=== PATIENT | female | born 1990 ===

== ENCOUNTER 2023-04-21 10:07 | Inpatient (IN) ==
[2023-04-21] MEDS ORDERED: PENICILLIN G POTASSIUM 6 MU in DEXTROSE 5% 250 ML IV STA (12:21)
[2023-04-21] MEDS ORDERED: LIDOCAINE 1% LOCAL 20 ML VIAL INFIL PRN (12:21)
[2023-04-21] MEDS ORDERED: OXYTOCIN 30 UNITS/500 ML BAG IV PRN ×2 (12:21→14:19)
--- NOTE | 2023-04-21 12:48 | History & Physical Report ---
Date of Service April 21, 2023 Assessment & Plan (1) IUGR (intrauterine growth restriction) affecting care of mother: Plan: Plan for induction of labor. Will start pitocin. Patient has not eaten all day, asking for food - will allow to eat, then will start pitocin. She is agreeable with plan. Check blood sugar hourly when in active labor. History of Present Illness Chief Complaint: IUGR Primary Care Provider: NO PCP 32yo @ 37 12/03, sent from office to L&D for induction of labor. She was seen for initial OB visit today, transfer from [facility]. Prior practice had been monitoring AC, last US showed AC 6%ile. She had an ultrasound at our practice today, showing <3%ile AC. Therefore, given gestational age, she has been recommended for IOL. H/o x 4. Gestational diabetes in this , no insulin use - states blood sugars have been between 100-115. Rh negative, rec'd Rhogam at prior practice. Strip Deburrer Ipad used for Icelandic language. Allergies Allergy/AdvReac Type Severity Reaction Status Date / Time No Known Allergies Allergy Verified 04/21/23 08:18 Home Medications Medication Instructions Recorded Confirmed Type prenat.vits,david,rcj-stvd-ldfkl 1 tab PO DAILY 04/20/23 04/21/23 History Patient History Medical History (Updated 04/21/23 @ 10:39 by Sharlene Echols RN) Gestational diabetes Family History (Updated 04/20/23 @ 13:48 by Sona Vasquez) Father Diabetes Social History (Updated 04/20/23 @ 13:49 by Sona Vasquez) Smoking Status: Never smoker Second Hand Exposure: No; Do You Dip or Chew Tobacco: No; Hx Alcohol Use: No Hx Substance Use: No Preferred Language: Other Communication Ability: Effective Strip Deburrer Required: Yes Beliefs That Will Affect Care: None marital status: marital status details: Darshan [phone] Current Living Situation: Family Current Living Situation Comment: Lives with and 4 children current occupational status: unemployed Other Information That Helps Us Care for You: No Assistive Devices: None Review of Systems All systems reviewed & are unremarkable except as noted in HPI & below Physical Exam Physical Exam: FHT Cat 1 [place] rare SVE 2-3/70/-2 Constitutional: WD/WN, vitals as above Respiratory: normal respiratory effort, lungs clear to auscultation no respiratory distress Cardiovascular: Rate/Rhythm: regular rate and regular rhythm Gastrointestinal (Abdomen): Inspection/Auscultation: abdomen normal to inspection Percussion/Palpation: abdomen soft; abdomen nontender Gravid. No s/s chorio or abruption. Skin: no rashes, warm and dry Psychiatric: A+Ox3, euthymic affect Results & Data Vital Signs (Past 12 Hours) Vital Signs Pulse Resp BP 04/21/23 11:35 74 115/81 04/21/23 10:59 76 117/80 04/21/23 10:47 59 L 90/51 L 04/21/23 11:02 76 16 117/80 Coding Level of Care Code None Diagnoses IUGR (intrauterine growth restriction) affecting care of mother O36.5990
[2023-04-21 13:00] LABS: Hematocrit (blood only) 36.2 % (37.0-47.0); Hemoglobin 12.2 g/dl (12.0-16.0); Mean Corpuscular Hemoglobin 27.6 pg (25.0-34.0); Mean Corpuscular Hgb Conc 33.7 g/dL (32.0-36.0); Mean Corpuscular Volume 81.9 fL (80.0-100.0); Mean Platelet Volume 12.9 fL (9.4-12.4); Platelet Count 198 K/uL (130-400); RDW Coefficient of Variation 14.1 % (11.5-14.5); RDW Standard Deviation 41.4 fL (36.4-46.3); Red Blood Count 4.42 M/uL (4.20-5.40); White Blood Count 7.78 K/ul (4.8-10.8)
[2023-04-21] MEDS: LACTATED RINGER'S 1,000 ML IV PRN ×2 (15:06→23:45)
[2023-04-21] MEDS: PENICILLIN G POTASSIUM 3 MU in DEXTROSE 5% 100 ML IV PRN ×2 (19:12→23:44)
--- NOTE | 2023-04-21 19:12 | Labor Progress Brief Note ---
Date of Service April 21, 2023 Visit with kennel staff member. Patient with pain and thinks she feels pressure. pit at 7. not interested in epidural yet Assessment & Plan (1) Encounter for induction of labor: (2) IUGR (intrauterine growth restriction) affecting care of mother: Plan Patient aware not much progress. Need to use pitocin to achieve better labor pattern. Aware of option for epidural pain managment and declines. Aware that I am taking over care as I am provider breakdown person. FHTs categ 1. Answered couple's questions via kennel staff member. Admission and Anticipated Discharge Date Admission Date: April 21, 2023 Physical Exam Constitutional: WD/WN, vitals as above Genitourinary: Manual OB Exam: + cervical dilation (no change. ) OB Exam Monitor Tracing: + external FHT monitor used, + external uterine monitor used (q3-4 pit at 7), + category I and + normal FHT variability Results & Data Vital Signs (Past 12 Hours) Vital Signs Temp Pulse Resp BP 04/21/23 12:55 98.2 F 04/21/23 18:15 67 18 107/72 04/21/23 18:00 18 04/21/23 18:00 18 04/21/23 17:30 18 04/21/23 17:30 18 04/21/23 16:59 18 04/21/23 16:59 18 04/21/23 17:07 99.0 F 65 18 118/78 04/21/23 16:30 18 04/21/23 16:30 18 04/21/23 16:00 76 18 112/78 04/21/23 15:45 18 04/21/23 15:45 18 04/21/23 15:12 76 120/70 04/21/23 11:35 74 115/81 04/21/23 10:59 76 117/80 04/21/23 10:47 59 L 90/51 L 04/21/23 11:02 98.2 F 76 16 117/80 Coding Level of Care Code None Diagnoses Encounter for induction of labor Z34.90 IUGR (intrauterine growth restriction) affecting care of mother O36.5990
--- NOTE | 2023-04-21 21:28 | Labor Progress Brief Note ---
Date of Service April 21, 2023 Subjective went to see pt with regular ctx and considering rom. pit at 15 notes some pain with ctx. has not requested pain mgmt. Assessment & Plan (1) Encounter for induction of labor: (2) IUGR (intrauterine growth restriction) affecting care of mother: Plan fhts categ 1. could not arom. cont pit. of note, during exam pt screamed out "c/section" and i then had forest pathology teacher set up. explained to pt that she can demand c/s and I would have to perform but no medical indication. she explains through forest pathology teacher that her other labors were spontaneous and she is not sure about induction and if its working. i explained via forest pathology teacher that currently no indication for c/s and that if i felt that indication arose, i would be sure to communicate that with her. also basic risks and complications of c/s reviewed with pt. i explained via forest pathology teacher that her screaming out "c/section" is troubling because i want to be sure we are preceding how she desires since she can demand c/s even if no medical need at this point. she explains to forest pathology teacher that this is not what she wants, she wants to continue with the induction. explained that patience is needed as she is not truly in labor yet and as I am understanding that she has not had an induction before, that this is a process that takes time and we only started this afternoon at 3pm. reviewed with her that exams are painful and made sure she did not feel she needed pain mgmt as that could help with the tolerance of exams. she declined pain mgmt and stated the pain is when i try to examine her and she is having some pain with ctx but not severe to request pain mgmt. all conversation witnessed by nurse and pt partner. he asked if i spoke Omkar because he is Omkar speaking but I do not. We will continue with current care plan and pt agrees. She denied further questions. Before hanging up with forest pathology teacher, I explained need for nurses to position pt in different ways to help promote the labor/progress and she seemed amenable. Will increase the pit max. Admission and Anticipated Discharge Date Admission Date: April 21, 2023 Physical Exam Constitutional: WD/WN, vitals as above Genitourinary: Manual OB Exam: + cervical dilation 3 cm, + cervical effacement 70%, + station -2 and + amniotic fluid (attempted arom x 2 unsuccessful ) OB Exam Monitor Tracing: + external FHT monitor used, + external uterine monitor used (q2 ), + category I and + normal FHT variability Results & Data Vital Signs (Past 12 Hours) Vital Signs Temp Pulse Resp BP 04/21/23 12:55 98.2 F 04/21/23 20:32 71 108/69 04/21/23 19:20 98.6 F 73 18 119/82 04/21/23 18:15 67 18 107/72 04/21/23 18:00 18 04/21/23 18:00 18 04/21/23 17:30 18 04/21/23 17:30 18 04/21/23 16:59 18 04/21/23 16:59 18 04/21/23 17:07 99.0 F 65 18 118/78 04/21/23 16:30 18 04/21/23 16:30 18 04/21/23 16:00 76 18 112/78 04/21/23 15:45 18 04/21/23 15:45 18 04/21/23 15:12 76 120/70 04/21/23 11:35 74 115/81 04/21/23 10:59 76 117/80 04/21/23 10:47 59 L 90/51 L 04/21/23 11:02 98.2 F 76 16 117/80 Coding Level of Care Code None Diagnoses Encounter for induction of labor Z34.90 IUGR (intrauterine growth restriction) affecting care of mother O36.5990
[2023-04-22] MEDS ORDERED: ePHEDrine sulfate 50 MG/ML AMP ONE (01:47)
[2023-04-22] MEDS ORDERED: BUPIVACAINE 0.25% PF 30 ML VIAL ONE (01:48)
[2023-04-22] MEDS ORDERED: SODIUM CHLORIDE 0.9% PF INJ 10 ML VIAL ONE (01:48)
[2023-04-22] MEDS ORDERED: LIDOCAINE 2%/EPINEPHRINE 1:200,000 20 ML PF ONE (01:48)
[2023-04-22] MEDS ORDERED: fentaNYL citrate PF 100 MCG/2 ML VIAL ONE (01:48)
[2023-04-22] MEDS ORDERED: fentaNYL 2MCG/ML ROPIVACAINE 1.25MG/ML 100 ML BAG EPI ONE (01:49)
[2023-04-22] MEDS: LACTATED RINGER'S 1,000 ML IV PRN (01:57)
--- NOTE | 2023-04-22 02:42 | Anesthesiology Consultation ---
Date of Service April 22, 2023 Assessment & Plan Chart Review Chart Review: Acceptable Risk for Labor Epidural Consults Requested none History Height/Weight Height: 5 ft 2 in Weight: 79.832 kg Allergies Allergy/AdvReac Type Severity Reaction Status Date / Time No Known Allergies Allergy Verified 04/21/23 08:18 Medications Home Medications Medication Instructions Recorded Confirmed Last Taken prenat.vits,david,zvw-xcct-keevb 1 tab PO DAILY 04/20/23 04/21/23 04/20/23 Active Medications Generic Name Dose Route Start Last Admin Trade Name Freq PRN Reason Stop Dose Admin Lactated Ringer's 1,000 mls @ 125 mls/hr 04/21/23 12:21 04/22/23 01:57 Lr IV 04/23/23 12:20 125 mls/hr .Q8H PRN Administration L&D Protocol Protocol Penicillin G Potassium 3 mu/ 106 mls @ 100 mls/hr 04/21/23 15:21 04/22/23 00:48 Dextrose IV 05/01/23 15:20 Infused Q4H PRN Infusion GBS(+) Until Delivery Oxytocin 30 units in 500 mls @ 21 mls/hr 04/21/23 14:19 04/21/23 23:25 Pitocin IV 04/23/23 14:18 1.26 units/hr .[id number] PRN 21 mls/hr Labor Induction/Augmentation Titration Protocol 1.26 UNITS/HR Past Medical History Medical History (Updated 04/21/23 @ 19:11 by Linette Walsh MD, FACOG) Gestational diabetes Past Family History Family History (Updated 04/20/23 @ 13:48 by Sona Vasquez) Father Diabetes Social History Smoking Status: Never smoker Do You Dip or Chew Tobacco: No Hx Alcohol Use: No Hx Substance Use: No Physical Exam Vital Signs Last Vital Signs Temp 36.8 C 04/22/23 02:40 Pulse 90 04/22/23 02:41 Resp 18 04/22/23 02:40 BP 107/60 04/22/23 02:41 Pulse Ox 98 04/22/23 02:40 Testing Laboratory Results 04/21/23 12:35 Blood Type A Negative 04/21/23 12:35 Antibody Screen POSITIVE A 04/21/23 12:35 04/21/23 19:06 POC Glucose 80
[2023-04-22] MEDS ORDERED: LIDOCAINE 2% MPF LOCAL 5 ML VIAL EPI PRN (02:44)
[2023-04-22] MEDS ORDERED: fentaNYL citrate PF 100 MCG/2 ML VIAL EPI PRN (02:44)
[2023-04-22] MEDS ORDERED: ONDANSETRON INJ 2 MG/ML 2 ML VIAL IV PRN (02:44)
[2023-04-22] MEDS ORDERED: SODIUM CHLORIDE 0.9% PF INJ 10 ML VIAL EPI STA (02:44)
[2023-04-22] MEDS ORDERED: SODIUM CHLORIDE 0.9% PF INJ 10 ML VIAL EPI PRN (02:44)
[2023-04-22] MEDS ORDERED: fentaNYL citrate PF 100 MCG/2 ML VIAL EPI STA (02:44)
[2023-04-22] MEDS ORDERED: ePHEDrine sulfate 50 MG/ML AMP IV PRN (02:44)
[2023-04-22] MEDS ORDERED: NALBUPHINE HCL INJ 10 MG/ML AMP IV PRN (02:44)
[2023-04-22] MEDS ORDERED: fentaNYL 2MCG/ML ROPIVACAINE 1.25MG/ML 100 ML BAG EPI PRN (02:44)
[2023-04-22] MEDS ORDERED: LIDOCAINE 2%/EPINEPHRINE 1:200,000 20 ML PF EPI STA (02:44)
[2023-04-22] MEDS ORDERED: BUPIVACAINE 0.25% PF 30 ML VIAL EPI STA (02:44)
[2023-04-22] MEDS ORDERED: NALOXONE HCL 1 MG in SODIUM CHLORIDE 0.9% 1000ML 1,000 ML IV PRN (02:44)
[2023-04-22] MEDS ORDERED: NALOXONE HCL 0.4 MG/1 ML VIAL/CARP IV PRN (02:44)
[2023-04-22] MEDS ORDERED: ROPIVACAINE 0.5% PF 5 MG/ML 20 ML VIAL EPI PRN (02:44)
[2023-04-22] MEDS ORDERED: BUPIVACAINE 0.25% PF 30 ML VIAL EPI PRN (02:44)
[2023-04-22] MEDS ORDERED: diphenhydrAMINE 50 MG/ML VIAL IV PRN (02:44)
[2023-04-22] MEDS: PENICILLIN G POTASSIUM 3 MU in DEXTROSE 5% 100 ML IV PRN ×2 (03:35→07:32)
--- NOTE | 2023-04-22 03:39 | Labor Progress Brief Note ---
Date of Service April 22, 2023 Subjective no complaints. comfortable with epidural. pit at 21 Assessment & Plan (1) Encounter for induction of labor: (2) IUGR (intrauterine growth restriction) affecting care of mother: Plan some cx change. will see how arom helps. fhts categ 1. construction operations manager used for entire visit. vicki intepreter. Admission and Anticipated Discharge Date Admission Date: April 21, 2023 Physical Exam Constitutional: WD/WN, vitals as above Genitourinary: Manual OB Exam: + cervical dilation (4), + cervical effacement (70%), + station (-2 ant) and + amniotic fluid (AROM, bloody show) clear OB E xam Monitor Tracing: + external FHT monitor used, + external uterine monitor used (q2-3 ), + category I and + normal FHT variability Results & Data Vital Signs (Past 12 Hours) Vital Signs Temp Pulse Resp BP Pulse Ox 04/22/23 03:35 73 99 04/22/23 03:33 68 106/63 04/22/23 03:30 72 100 04/22/23 03:25 75 100 04/22/23 03:22 67 107/65 04/22/23 03:20 64 98 04/22/23 03:18 71 102/64 04/22/23 03:15 77 98 04/22/23 03:11 71 110/69 04/22/23 03:10 68 98 04/22/23 03:06 75 113/71 04/22/23 03:05 61 98 04/22/23 03:01 61 108/66 04/22/23 03:00 72 99 04/22/23 02:56 73 110/71 04/22/23 02:55 71 99 04/22/23 02:53 75 108/65 04/22/23 02:50 99 04/22/23 02:50 104 H 04/22/23 02:50 86 109/70 04/22/23 02:47 76 108/64 04/22/23 02:45 84 98 04/22/23 02:44 74 107/63 04/22/23 02:41 90 107/60 04/22/23 02:40 18 04/22/23 02:40 98.2 F 92 H 18 98 04/22/23 02:38 85 106/68 04/22/23 02:35 97 04/22/23 02:35 71 04/22/23 02:35 65 112/72 04/22/23 02:31 73 114/75 04/22/23 02:30 72 99 04/22/23 02:25 79 99 04/22/23 02:20 73 98 04/22/23 02:15 69 98 04/22/23 02:10 73 99 04/22/23 02:05 70 100 04/22/23 02:00 69 100 04/22/23 01:33 74 114/73 04/21/23 23:51 18 04/21/23 23:51 99.0 F 18 04/22/23 00:33 69 112/77 04/21/23 23:33 62 105/58 L 04/21/23 22:34 71 126/79 04/21/23 21:33 66 124/77 04/21/23 20:32 71 108/69 04/21/23 19:20 98.6 F 73 18 119/82 04/21/23 18:15 67 18 107/72 04/21/23 18:00 18 04/21/23 18:00 18 04/21/23 17:30 18 04/21/23 17:30 18 04/21/23 16:59 18 04/21/23 16:59 18 04/21/23 17:07 99.0 F 65 18 118/78 04/21/23 16:30 18 04/21/23 16:30 18 04/21/23 16:00 76 18 112/78 04/21/23 15:45 18 04/21/23 15:45 18 Coding Level of Care Code None Diagnoses Encounter for induction of labor Z34.90 IUGR (intrauterine growth restriction) affecting care of mother O36.5990
--- NOTE | 2023-04-22 09:14 | Labor Progress Brief Note ---
Date of Service April 22, 2023 Subjective Comfortable with epidural. FHT Cat 1 [place] Q2-3 SVE 5/70/-2, anterior. Palpable membranes - ?forebag, AROM for copious clear fluid Will continue labor Assessment & Plan Admission and Anticipated Discharge Date Admission Date: April 21, 2023 Results & Data Vital Signs (Past 12 Hours) Vital Signs Temp Pulse Resp BP Pulse Ox 04/22/23 07:15 37.3 C 20 04/22/23 09:10 78 99 04/22/23 09:08 77 120/72 04/22/23 09:05 80 99 04/22/23 09:00 83 100 04/22/23 08:55 79 100 04/22/23 08:53 82 122/74 04/22/23 08:50 84 99 04/22/23 08:45 79 99 04/22/23 08:40 78 99 04/22/23 08:39 82 123/74 04/22/23 08:35 90 100 04/22/23 08:30 70 20 99 04/22/23 08:25 70 97 04/22/23 08:23 71 116/59 L 04/22/23 08:20 70 98 04/22/23 08:15 69 97 04/22/23 08:10 67 98 04/22/23 08:08 64 114/57 L 04/22/23 08:05 67 98 04/22/23 08:00 64 20 97 04/22/23 07:55 65 98 04/22/23 07:53 69 114/61 04/22/23 07:50 68 98 04/22/23 07:45 69 98 04/22/23 07:40 69 98 04/22/23 07:38 67 111/58 L 04/22/23 07:35 71 99 04/22/23 07:30 37.3 C 72 20 98 04/22/23 07:25 68 97 04/22/23 07:24 68 111/58 L 04/22/23 07:20 71 98 04/22/23 07:15 77 98 04/22/23 07:10 80 97 04/22/23 07:07 74 106/65 04/22/23 07:05 73 99 04/22/23 07:02 77 109/58 L 04/22/23 07:00 88 98 04/22/23 06:55 78 98 04/22/23 06:50 77 97 04/22/23 06:51 67 107/57 L 04/22/23 06:48 67 104/58 L 04/22/23 06:45 68 97 04/22/23 06:42 65 104/56 L 04/22/23 06:40 67 97 04/22/23 06:37 70 106/59 L 04/22/23 06:35 68 98 04/22/23 06:31 72 106/62 04/22/23 06:30 65 98 04/22/23 06:26 67 101/59 L 04/22/23 06:25 65 97 04/22/23 06:23 65 104/56 L 04/22/23 06:20 69 97 04/22/23 06:15 68 98 04/22/23 06:16 64 108/57 L 04/22/23 06:12 65 105/55 L 04/22/23 06:10 68 98 04/22/23 06:06 64 105/57 L 04/22/23 06:05 70 98 04/22/23 06:02 71 110/62 04/22/23 06:00 37.1 C 74 16 99 04/22/23 05:57 78 115/69 04/22/23 05:55 76 99 04/22/23 05:52 77 108/68 04/22/23 05:50 77 98 04/22/23 05:48 71 107/62 04/22/23 05:45 74 100 04/22/23 05:42 71 101/61 04/22/23 05:40 68 99 04/22/23 05:36 72 107/63 04/22/23 05:35 73 98 04/22/23 05:32 76 105/65 04/22/23 05:30 73 98 04/22/23 05:26 75 109/67 04/22/23 05:25 75 98 04/22/23 05:21 72 104/57 L 04/22/23 05:20 72 97 04/22/23 05:17 70 109/60 04/22/23 05:15 70 98 04/22/23 05:10 66 97 04/22/23 05:11 71 99/62 L 04/22/23 05:05 71 97 04/22/23 05:06 70 105/62 04/22/23 05:00 77 98 04/22/23 05:01 84 102/65 04/22/23 04:58 74 100/67 04/22/23 04:55 79 98 04/22/23 04:52 68 101/64 04/22/23 04:50 76 99 04/22/23 04:47 69 106/70 04/22/23 04:45 74 99 04/22/23 04:43 18 04/22/23 04:43 36.7 C 18 04/22/23 04:42 78 114/68 04/22/23 04:40 77 100 04/22/23 04:35 72 97 04/22/23 04:36 75 96/62 L 04/22/23 04:30 76 98 04/22/23 04:31 86 100/65 04/22/23 04:25 72 99 04/22/23 04:26 83 99/63 L 04/22/23 04:22 74 108/64 04/22/23 04:20 72 98 04/22/23 04:17 84 104/71 04/22/23 04:15 75 100 04/22/23 04:12 72 109/70 04/22/23 04:10 72 98 04/22/23 04:07 71 108/69 04/22/23 04:05 75 99 04/22/23 04:02 72 109/70 04/22/23 04:00 72 99 04/22/23 03:57 71 107/69 04/22/23 03:55 68 100 04/22/23 03:53 78 96/63 L 04/22/23 03:50 66 100 04/22/23 03:45 70 100 04/22/23 03:31 18 04/22/23 03:31 36.6 C 18 04/22/23 03:42 71 103/61 04/22/23 03:40 76 100 04/22/23 03:37 67 114/80 04/22/23 03:35 73 99 04/22/23 03:33 68 106/63 04/22/23 03:30 72 100 04/22/23 03:25 75 100 04/22/23 03:22 67 107/65 04/22/23 03:20 64 98 04/22/23 03:18 71 102/64 04/22/23 03:15 77 98 04/22/23 03:11 71 110/69 04/22/23 03:10 68 98 04/22/23 03:06 75 113/71 04/22/23 03:05 61 98 04/22/23 03:01 61 108/66 04/22/23 03:00 72 99 04/22/23 02:56 73 110/71 04/22/23 02:55 71 99 04/22/23 02:53 75 108/65 04/22/23 02:50 99 04/22/23 02:50 104 H 04/22/23 02:50 86 109/70 04/22/23 02:47 76 108/64 04/22/23 02:45 84 98 04/22/23 02:44 74 107/63 04/22/23 02:41 90 107/60 04/22/23 02:40 18 04/22/23 02:40 36.8 C 92 H 18 98 04/22/23 02:38 85 106/68 04/22/23 02:35 97 04/22/23 02:35 71 04/22/23 02:35 65 112/72 04/22/23 02:31 73 114/75 04/22/23 02:30 72 99 04/22/23 02:25 79 99 04/22/23 02:20 73 98 04/22/23 02:15 69 98 04/22/23 02:10 73 99 04/22/23 02:05 70 100 04/22/23 02:00 69 100 04/22/23 01:33 74 114/73 04/21/23 23:51 18 04/21/23 23:51 37.2 C 18 04/22/23 00:33 69 112/77 04/21/23 23:33 62 105/58 L 04/21/23 22:34 71 126/79 04/21/23 21:33 66 124/77 Coding Level of Care Code None Diagnoses
--- NOTE | 2023-04-22 10:23 | Delivery Summary ---
Vaginal Delivery Summary Date of Service April 22, 2023 Vaginal Delivery Summary [facility] Vaginal Delivery Summary: Pre-delivery diagnoses: 32yo @ 38 2/, late transfer of care, GBS unknown, IUGR with AC <3%ile, GDM, Rh negative Post-delivery diagnoses: same Procedure: spontaneous vaginal delivery Surgeon: Kimber Bolaños DO Complications: none Findings: Viable male . Apgars: 8/9. Weight pending, please see nursery records. Estimated blood loss: 300ml Description of delivery: The patient progressed to complete with epidural anesthesia. She then began to push. She spontaneously vaginally delivered a viable from the cephalic presentation. The head delivered in [place] position. The posterior shoulder delivered first with a compound hand, followed by anterior shoulder, followed by the body. No nuchal cord noted. The baby was placed on mother's abdomen and a spontaneous cry was heard. Delayed cord clamping was employed, and the cord was doubly clamped and cut. Cord blood was obtained. The placenta was delivered spontaneously intact with a 3-vessel cord. The uterus and vagina were swept of clots and debris. IV pitocin was given. The uterus became firm. The cervix, vagina, and perineum were inspected and no lacerations were noted. Excellent hemostasis was observed. The mother and baby are recovering in stable and good condition in the room. Sponge and instrument counts were correct x 2. Kimber Bolaños DO [facility] V[facility] Delivery Charge Vaginal Delivery Codes: 07170 global code for the antepartum, delivery, and post- Delivery Type Details: [facility]
[2023-04-22] MEDS ORDERED: ACETAMINOPHEN 325 MG TAB PO PRN (10:33)
[2023-04-22] MEDS ORDERED: oxyCODONE/ACETAMINOPHEN 5mg/325mg TAB PO PRN (10:33)
[2023-04-22] MEDS ORDERED: BENZOCAINE 20% AER SPR 82.5 GM CAN EXT PRN (10:33)
[2023-04-22] MEDS ORDERED: OXYTOCIN 30 UNITS/500 ML BAG IV PRN (10:33)
[2023-04-22] MEDS ORDERED: bisacodyL 10 MG SUPP PR PRN (10:33)
[2023-04-22] MEDS ORDERED: HYDROCORTISONE ACETATE 25 MG SUPP PR PRN (10:33)
[2023-04-22] MEDS ORDERED: DIPHTHERIA/TETANUS/PERTUSSIS Vaccine (Tdap, Age 7+yrs) 0.5mL SYR/VL IM ONE (10:33)
--- NOTE | 2023-04-22 11:31 | Anesthesia Procedure Note ---
Date of Service April 22, 2023 Anesthesia Post Epidural Note Vital Signs Vital Signs: Temp Pulse Resp BP Pulse Ox 98.4 F 83 18 126/68 98 04/22/23 10:14 04/22/23 11:29 04/22/23 10:44 04/22/23 11:29 04/22/23 10:15 Pain Intensity Lower Abdomen: Pain Intensity: 4 Notes Mental Status: alert / awake / arousable and participated in evaluation Nausea / Vomiting: adequately controlled Pain: adequately controlled Airway Patency, RR, SpO2: stable & adequate BP & HR: stable & adequate Hydration State: stable & adequate Neuraxial Anesthesia: was administered and sensory block is resolving Anesthetic Complications: no major complications apparent and Pt Satisfied with anesthetic care Epidural: Removed without complications and With tip intact
[2023-04-22] MEDS: IBUPROFEN 600 MG TAB PO PRN ×2 (12:20→20:13)
[2023-04-22] MEDS: DOCUSATE SODIUM 100 MG CAP PO SCH (22:04)
[2023-04-23] MEDS ORDERED: PRENATAL VITAMIN 1 TAB PO SCH (08:00)
[2023-04-23 08:43] LABS: Hematocrit (blood only) 28.2 % (37.0-47.0); Hemoglobin 9.5 g/dl (12.0-16.0)
[2023-04-23] MEDS: DOCUSATE SODIUM 100 MG CAP PO SCH (09:52)
--- NOTE | 2023-04-23 09:52 | Obstetrical Progress Note ---
Date of Service April 23, 2023 Assessment & Plan (1) Supervision of normal intrauterine in multigravida: PPD#1 doing well. Desires discharge home. No concerns. Reviewed instructions. 6w followup in office. Subjective Ambulation: ambulating normally Voiding: no voiding problems Diet Tolerance:: regular diet Lochia:: Moderate Review of Systems All systems reviewed & are unremarkable except as noted in HPI & below Physical Exam Constitutional WD/WN, vitals as above no acute distress Respiratory normal respiratory effort Cardiovascular Rate/Rhythm: regular rate and regular rhythm Gastrointestinal (Abdomen) Inspection/Auscultation: abdomen normal to inspection; abdomen not distended Percussion/Palpation: abdomen soft Genitourinary OB Exam Abdomen: + fundal height Fundus: + firm; not tender Results & Data Vital Signs (Past 12 Hours) Vital Signs Temp Pulse Resp BP Pulse Ox O2 Del Method 04/23/23 07:10 36.5 C 71 18 106/69 04/23/23 04:55 37.5 C 80 18 106/68 04/23/23 01:38 36.8 C 72 18 103/67 96 Room Air
[2023-04-23] MEDS ORDERED: bisacodyL 5 MG TABEC PO SCH (20:00)
== END 2023-04-23 13:20 | disposition home or self-care (01) | DRG 807 ==
LOC: OPB 10:07 → 4S1 10:11 → 4E2 04-22 12:15